=== PATIENT | female | born 1945 | race Caucasian/White ===

== ENCOUNTER → 2016-05-11 | Outpatient (CLI) | payer MEDICARE ==
[~2016-05-11] MED LIST: ASCO500T20 PO; ASP81TEC PO; ATN50T PO; ATR20T; C250T PO; CHOL10002 PO; CYAN10007 PO; E400C PO; ERGO400C PO; ESCI20TA2 PO; FENO134C PO; HCT25T PO; HCTZ12.5T PO; LINA5TAB PO; LISI40TA PO; LOVA40TA2 PO; LSNP20T PO; MELO-198 PO; MULT1TAB63 PO; OXYC-12 PO; SUPER B PLUS PO
--- OUTSIDE RECORDS SUMMARY | 2016-05-11 13:12 | XMS REPORT | Continuity of Care Document ---
Author Author [facility] Organization [facility] Address Unknown Phone Unavailable Care Team Providers Care Rn Clinical Trials Name Role Phone Susan May III PCP [phone] Source Comments Some departments are not documenting in the electronic medical record. If you do not see the information that you expected, contact Release of Information in the Health Information Management department at [phone] for further assistance in locating additional records.[facility] Active Allergies and Adverse Reactions No Known Allergies Current Medications Prescription Sig. Disp. Refills Start End Date Status Date sitaGLIPtin (JANUVIA) 100 Take 100 mg by mouth Active mg tab tablet daily. amLODIPine (NORVASC) 10 Take 10 mg by mouth Active mg tablet daily. escitalopram oxalate Take 20 mg by mouth at Active (LEXAPRO) 20 mg tablet bedtime daily. meloxicam (MOBIC) 15 mg Take 15 mg by mouth Active tablet daily. lisinopril (PRINIVIL; Take 20 mg by mouth Active ZESTRIL) 20 mg tablet daily. lovastatin(+) (MEVACOR) Take 40 mg by mouth at Active 40 mg tablet bedtime daily. aspirin EC 81 mg tablet Take 81 mg by mouth Active daily. metoprolol (LOPRESSOR) 25 Take 25 mg by mouth twice Active mg tablet daily. Active Problems Problem Noted Date Vocal cord paralysis 11/21/2014 Dysphonia 10/23/2014 Vocal cord paralysis, unilateral complete - left 10/23/2014 Dysphagia, pharyngoesophageal phase - to liquids 10/23/2014 Most Recent Encounters Date Type Specialty Providers Description 03/31/2016 Clinical Otolaryngology May, Radha, Dysphonia ( Primary Dx); Support ABRAN HARP-COMPLIANCE SPECIALIST Vocal cord paralysis 03/31/2016 Office Visit Otolaryngology Baldev Garcia MD Dysphonia ( Primary Dx); Vocal cord paralysis, unilateral complete - left; Dysphagia, pharyngoesophageal phase - to liquids Social History Tobacco Use Types Packs/Day Years Used Date Current Every Day Smoker 1 40 Smokeless Tobacco: Never Used Tobacco Cessation: Ready to Quit: No; Counseling Given: Yes Comments: Alcohol Use Drinks/Week oz/Week Comments Yes 0 Standard 0.0 1 drink/year. drinks or equivalent Last Filed Vital Signs Vital Sign Reading Time Taken Blood Pressure 127/73 03/31/2016 10:57 AM BOMB SQUAD COMMANDER Pulse 67 03/31/2016 10:57 AM B[employer] SQU[employer] COMMANDER Temperature 36.6 C (97.8 F) 11/22/2014 6:36 AM CDT Respiratory Rate - - Height 1.626 m (5' 4") 03/31/2016 10:57 AM BOMB SQU[employer] COMMANDER Weight 73.12 kg (161 lb 3.2 oz) 03/31/2016 10:57 AM BOM[employer] SQU[employer] COMMANDER Body Mass Index 27.66 03/31/2016 10:57 AM BOM[employer] SQU[employer] COMMANDER Oxygen Saturation 94% 11/22/2014 10:04 AM CDT Plan of Care Date Type Specialty Providers Description 04/06/2017 Appointment Otolaryngology Baldev Garcia MD [address] [facility] [address] [place] [address] [phone] (Fax) Health Maintenance Due Date Last Done Comments Hepatitis C Screening 1945 Physical (Comprehensive) 06/16/1954 Exam Pertussis Vaccine 06/16/1958 Tetanus Vaccine 06/16/1964 Breast Cancer Screening 1987 Colorectal Cancer 06/16/1997 Screening Shingles Vaccine 2007 Osteoporosis Screening 06/16/2012 Prevnar/Pneumovax (#1) 06/16/2012 Influenza Vaccine 12/18/2015 Procedures from Last 3 Months Procedure Name Priority Date/Time Associated Diagnosis Comments ACOUSTIC ANALYSIS Routine 03/31/2016 Vocal cord paralysis, 12:00 AM BOMB SQUAD COMMANDER unilateral complete - left Results from Last 3 Months ACOUSTIC ANALYSIS (03/31/2016)
== END ==
LOC: RAD 13:08
PROVIDERS: ATTEND Internal Medicine Cardiovascular Disease
DX: I73.9 Peripheral vascular disease, unspecified (principal); R06.09 Other forms of dyspnea; Z72.0 Tobacco use; Z95.2 Presence of prosthetic heart valve; I25.10 Atherosclerotic heart disease of native coronary artery without angina pectoris; E11.9 Type 2 diabetes mellitus without complications; R49.8 Other voice and resonance disorders
CPT/HCPCS: 93923

== ENCOUNTER → 2016-05-18 | Outpatient (CLI) | payer MEDICARE ==
[~2016-05-18] VITALS: Ht 162.6 cm; Wt 72.6 kg
[~2016-05-18] MED LIST changes: +REGADENOSON 0.4 MG/5 ML SYR (LEXISCAN) IV ONE
--- OUTSIDE RECORDS SUMMARY | 2016-05-18 10:50 | XMS REPORT | Continuity of Care Document ---
Author Author [facility] Organization [facility] Address Unknown Phone Unavailable Care Team Providers Care Dinkey Engineer Name Role Phone Susan May III PCP [phone] Source Comments Some departments are not documenting in the electronic medical record. If you do not see the information that you expected, contact Release of Information in the Health Information Management department at [phone] for further assistance in locating additional records.[facility] Active Allergies and Adverse Reactions No Known [...] Radha, Dysphonia ( Primary Dx); Support ABRAN HARP-PASSENGER CONDUCTOR Vocal cord paralysis 03/31/2016 Office Visit Otolaryngology [...] Taken Blood Pressure 127/73 03/31/2016 10:57 AM TAX SERVICES MANAGER Pulse 67 03/31/2016 10:57 AM TAX SERVICES MANAGER Temperature 36.6 C (97.8 F) 11/22/2014 6:36 AM CDT Respiratory Rate - - Height 1.626 m (5' 4") 03/31/2016 10:57 AM TAX SERVICES MANAGER Weight 73.12 kg (161 lb 3.2 oz) 03/31/2016 10:57 AM TAX SERVICES MANAGER Body Mass Index 27.66 03/31/2016 10:57 AM TAX SERVICES MANAGER Oxygen Saturation 94% 11/22/2014 10:04 AM CDT Plan of Care Date Type Specialty Providers Description 04/06/2017 Appointment Otolaryngology Baldev Garcia MD [address] [facility] [address] [place] [address] [phone] (Fax) Health Maintenance Due Date Last Done Comments Hepatitis C Screening 1945 Physical (Comprehensive) 06/16/1954 Exam Pertussis Vaccine 06/16/1958 Tetanus Vaccine 06/16/1964 Breast Cancer Screening 1987 Colorectal Cancer 06/16/1997 Screening Shingles Vaccine 2007 Osteoporosis Screening 06/16/2012 Prevnar/Pneumovax (#1) 06/16/2012 Influenza Vaccine 12/18/2015 Procedures from Last 3 Months Procedure Name Priority Date/Time Associated Diagnosis Comments ACOUSTIC ANALYSIS Routine 03/31/2016 Vocal cord paralysis, 12:00 AM TAX SERVICES MANAGER unilateral complete - left Results from Last 3 Months ACOUSTIC ANALYSIS (03/31/2016)
[2016-05-18] MEDS: CATHETER FLUSH 10 ML SYR IV PRN ×2 (11:59→13:13)
[2016-05-18 13:07] VITALS: BP 151/81
--- NOTE | 2016-05-19 09:24 | STRESS TEST ---
PROCEDURE PHYSICIAN: BERTRAND GRAHAM DATE OF PROCEDURE: 05/18/2016 RESTING AND POST REGADENOSON TECHNETIUM 99M TETROFOSMIN SPECT CT IMAGING: ORDERING PHYSICIAN: Dr. Graham PRIMARY PHYSICIAN: Dr. May CLINICAL DIAGNOSES: 1. Coronary artery disease. 2. Shortness of breath. Baseline images were carried out after injection of 10.16 mCi technetium 99m tetrofosmin. This was followed by 0.4 mg of regadenoson and 32 mCi of technetium 99m tetrofosmin for stress imaging. The electrocardiogram showed sinus rhythm at baseline and there was right bundle branch block. The electrocardiogram did not change with the regadenoson infusion. The patient did not report symptoms. Review of images at rest and following stress, does not indicate any distinct perfusion defects consistent with significant myocardial ischemia or infarction. Gated images show normal global left ventricular systolic function with no regional wall motion. Left ventricular ejection fraction is calculated to be 79%. Left ventricular end-diastolic volume is 41 mL. TID is absent (0.99). CONCLUSION: 1. No evidence of significant myocardial ischemia or infarction on this study. 2. Normal regional wall motion. 3. Normal global left ventricular systolic function with a calculated ejection fraction of 79%. Job ID: [id number] Dictated Date: 05/18/2016 15:32:02 Educational Recruiter Date: 05/19/2016 09:19:26 / giancarlo
--- NOTE | 2016-05-21 08:41 | ECHOCARDIOGRAPHY REPORT ---
PROCEDURE PHYSICIAN: BERTRAND GRAHAM DATE OF PROCEDURE: 05/18/2016 TWO DIMENSIONAL ECHOCARDIOGRAM REPORT PRIMARY PHYSICIAN: Dr. May OTHER PHYSICIAN: REFERRING PHYSICIAN: ORDERING PHYSICIAN: Dr. Graham INDICATION FOR THE PROCEDURE: 1. Coronary artery disease. 2. Shortness of breath. MEASUREMENTS DERIVED VALUES LV DIAMETER (LAX) NORMALS NORMALS Diastolic 5 (3.6-5.2) Eject. Fract. (60%+/-6%) Systolic (2.3-3.9) Diastolic Vol. % Shortening (0.22-0.42) Systolic Vol. Aortic Root 3.2 IVS THICKNESS Diastolic 1.1 (0.6-1.1) LVPW THICKNESS Diastolic 1 (0.6-1.1) LA DIAMETER Systolic 4.6 (2.1-3.7) DESCRIPTION: This is a technically difficult study. The study is unsuitable for wall motion analysis. Aortic, mitral and tricuspid valve leaflets show good leaflet excursion. Left ventricular systolic function appears to be within normal limits. Left ventricular ejection fraction is estimated to be 55 to 60%. There is mild enlargement of the atrium. In the aortic position, the patient is known to have a bioprosthesis. Leaflet structure is not well visualized. Peak pressure gradient across the aortic valve is approximately 41 mmHg with a mean gradient of approximately 13 mmHg and the aortic valve area is calculated to be approximately 1.8 cm sq. Mitral inflow is consistent with grade 1 diastolic dysfunction of the left ventricle. There does not appear to be evidence of significant mitral stenosis. There is no evidence of intracardiac shunt on this transthoracic echocardiographic study. Inferior vena cava does not appear significantly dilated and does exhibit inspiratory collapse. CONCLUSIONS: 1. Technically difficult study. 2. Well preserved global left ventricular systolic function with an ejection fraction of approximately 55%. 3. Aortic valve bioprosthesis that appears to be functioning adequately. 4. Mild diastolic dysfunction of the left ventricle. 5. Trivial to mild mitral, tricuspid and aortic regurgitation. 6. Pulmonary artery systolic pressure is estimated to be approximately 30 mmHg. Job ID: [id number] Dictated Date: 05/20/2016 09:56:23 Artificial Breeding Technician Date: 05/21/2016 08:20:10 / giancarlo
== END ==
LOC: CARD 10:48
PROVIDERS: ATTEND Internal Medicine Cardiovascular Disease
DX: I73.9 Peripheral vascular disease, unspecified (principal); Z72.0 Tobacco use; Z95.2 Presence of prosthetic heart valve; I25.10 Atherosclerotic heart disease of native coronary artery without angina pectoris; E11.9 Type 2 diabetes mellitus without complications; R49.8 Other voice and resonance disorders; R06.09 Other forms of dyspnea
CPT/HCPCS: 78452; 93017; 93306

== ENCOUNTER → 2018-09-19 | Outpatient (CLI) | payer MEDICARE, OTHER ==
[~2018-09-19] VITALS: Ht 162.6 cm; Wt 69.9 kg
[~2018-09-19] MED LIST changes: +CATHETER FLUSH 10 ML SYR IV PRN
--- NOTE | 2018-09-20 14:00 | STRESS TEST ---
DATE OF SERVICE: 09/19/2018 RESTING AND POST REGADENOSON TECHNETIUM-99M TETROFOSMIN SPECT CT IMAGING ORDERING PHYSICIAN: Dr. Graham. PRIMARY PHYSICIAN: Dr. May. CLINICAL DIAGNOSIS: Coronary artery disease. Baseline images were carried out after injection of 10.76 mCi of technetium-99m Tetrofosmin. This was followed by 0.4 mg regadenoson and 30.7 mCi of technetium-99m Tetrofosmin for stress imaging. The electrocardiogram showed sinus rhythm with right bundle branch block at baseline. The electrocardiogram did not change significantly with the regadenoson infusion. Review of images at rest and following stress does not indicate any significant perfusion defects consistent with significant myocardial ischemia or infarction. Gated images show normal global left ventricular systolic function, normal regional wall motion. Left ventricular ejection fraction is calculated to be 78%. Left ventricular end diastolic volume is 57 mL. TID is absent (0.93). CONCLUSIONS: 1. No evidence of any significant myocardial ischemia or infarction. 2. Normal regional wall motion. 3. Normal global left ventricular systolic function with a calculated ejection fraction of 78%. Job ID: [id number] DocumentID: [id number] Dictated Date: 09/20/2018 12:51:50 Obstetrics Tech Date: 09/20/2018 13:59:22 Dictated By: BERTRAND GRAHAM MD, MA, FACP, FACC,
== END ==
LOC: CARD 10:45
PROVIDERS: ATTEND Internal Medicine Cardiovascular Disease
DX: I25.10 Atherosclerotic heart disease of native coronary artery without angina pectoris (principal); R06.09 Other forms of dyspnea; E11.9 Type 2 diabetes mellitus without complications; E78.5 Hyperlipidemia, unspecified; I65.23 Occlusion and stenosis of bilateral carotid arteries; Z95.3 Presence of xenogenic heart valve
CPT/HCPCS: 78452; 93017

== ENCOUNTER → 2021-01-13 | Outpatient (CLI) | payer MEDICARE ==
[~2021-01-13] MED LIST changes: -CATHETER FLUSH 10 ML SYR IV PRN; -REGADENOSON 0.4 MG/5 ML SYR (LEXISCAN) IV ONE
== END ==
LOC: CARD 13:45
PROVIDERS: ATTEND Nurse Practitioner Family
DX: I08.0 Rheumatic disorders of both mitral and aortic valves (principal); Z95.4 Presence of other heart-valve replacement
CPT/HCPCS: 93306

== ENCOUNTER → 2022-02-01 | Outpatient (CLI) | payer MEDICARE | LOC: CARD 13:00 | PROVIDERS: ATTEND Internal Medicine Cardiovascular Disease | DX: I51.7 Cardiomegaly (principal); I35.1 Nonrheumatic aortic (valve) insufficiency; Z95.4 Presence of other heart-valve replacement | CPT/HCPCS: 93306 ==

== ENCOUNTER → 2022-07-19 | Outpatient (CLI) | payer MEDICARE | LOC: CARD 11:32 | PROVIDERS: ATTEND Internal Medicine Cardiovascular Disease | DX: I08.2 Rheumatic disorders of both aortic and tricuspid valves (principal) | CPT/HCPCS: 93306 ==

== ENCOUNTER 2022-09-14 07:08 | Day surgery (SDC) | payer MEDICARE ==
[~2022-09-14] VITALS: Ht 165.1 cm; Wt 67.1 kg
[2022-09-14] VITALS (9 sets, daily range): BP systolic 138–150; BP diastolic 50–65
[2022-09-14] MEDS ORDERED: HEParin (CATH LAB) 2,000 ML IV ONE (07:13)
[2022-09-14] MEDS ORDERED: NS IV 1000 ML 1,000 ML ONE (07:13)
[2022-09-14] MEDS ORDERED: LIDOCAINE 1% INJ 20 ML VIAL ONE ×2 (07:13→08:59)
[2022-09-14] MEDS ORDERED: NS IV 1000 ML 1,000 ML IV SCH ×2 (07:15→10:15)
[2022-09-14 07:41] LABS: HEMATOCRIT 40 % (35-52); HEMOGLOBIN 13.8 g/dL (11.5-16.0); MEAN CORPUSCULAR HEMOGLOBIN 31 pg (25-34); MEAN CORPUSCULAR HGB CONC 34 g/dL (32-36); MEAN CORPUSCULAR VOLUME 91 fL (80-99); MEAN PLATELET VOLUME 11.7 fL (9.0-12.2); PLATELET COUNT 143 10^3/uL (130-400); WHITE BLOOD COUNT 7.9 10^3/uL (4.3-11.0)
[2022-09-14] MEDS ORDERED: AMLO-251 PO (07:48)
[2022-09-14] MEDS ORDERED: RT-ALBUINH INH (07:48)
[2022-09-14] MEDS ORDERED: SITA100T12 PO (07:48)
[2022-09-14] MEDS ORDERED: MELO15TA39 PO (07:48)
[2022-09-14] MEDS ORDERED: MTP100TCR PO (07:48)
[2022-09-14] MEDS ORDERED: DOXA2TAB2 PO (07:48)
[2022-09-14 07:52] LABS: PROTHROMBIN TIME PATIENT 13.2 SEC (12.2-14.7)
[2022-09-14] MEDS ORDERED: fentaNYL INJ 100 MCG/2 ML AMP ONE (07:52)
[2022-09-14] MEDS ORDERED: MIDAZOLAM 5 MG/5 ML (VERSED) VIAL ONE (07:53)
[2022-09-14 08:00] LABS: ALBUMIN 3.8 GM/DL (3.2-4.5); BILIRUBIN,TOTAL 0.5 MG/DL (0.1-1.0); CALCIUM 9.3 MG/DL (8.5-10.1); CREATININE SERUM 1.13 MG/DL (0.60-1.30); POTASSIUM 4.2 MMOL/L (3.6-5.0); TOTAL PROTEIN 6.7 GM/DL (6.4-8.2)
--- NOTE | 2022-09-14 09:49 | Cardiac Procedure Note-CS/ASA ---
Pre-Procedure Note Pre-Op Procedure Note Date of Available H&P: September 01, 2022 Date H&P Reviewed: September 14, 2022 Time H&P Reviewed: 08:45 History & Physical: H&P Reviewed, No changes noted Moderate Sedation PreProcedure ASA Score 3 Airway Lungs Heart ASA score ASA 1: a normal healthy patient ASA 2: a patient with a mild systemic disease (mid diabetes, controlled hypertension, obesity ASA 3: a patient with a severe systemic disease that limits activity (angina, COPD, prior Myocardial infarction) ASA 4: a patient with an incapacitating disease that is a constant threat to life (CHF, renal failure) ASA 5: a moribund patient not expected to survive 24 hrs. (ruptured aneurysm) ASA 6: a declared brain- patient whose organs are being harvested. For emergent operations, add the letter E after the classification Mallampati Classification Grade 2 Sedation Plan Analgesia, Amnesia, Plan communicated to team members The patient is an appropriate candidate to undergo the planned procedure, sedation, and anesthesia. The patient immediately re-assessed prior to indication. BERTRAND HOPE MD FACP FAC CCDS September 14, 2022 09:49
--- NOTE | 2022-09-14 10:03 | Cardiac Cath Report ---
CARDIAC CATHETERIZATION DATE OF PROCEDURE: 09-14-22 INDICATION: Aortic regurgitation HISTORY: The patient is a 77 year old female w/o h/o Trifecta AoV replacement in 2012 and ascending aortic aneurysm and AoV regurg repair in 2013 who currently has mod to severe aortic regurgitation on echo of 2022 PROCEDURES PERFORMED: 1. RHC; 2. Cor angio; 3. Aortic root angio PROCEDURE DESCRIPTION: After informed consent and in the fasting state; inht heart cath was performed through the R femoral vein using a 7F [place]-Geri; left heart catheterization was performed through the R remoral artery utilizing a 5 Azeri system by percutaneous approach. 5F JL5 for L cors, 5F JR 4 for R cor, 5F pigtail for aortic root angio. Manual pressure for hemostasis after arterial and venous sheath removal. HEMODYNAMICS: PA 40/19/26 mmHg PWP mean 17 mmHg RV 44/10 mmHg RA mean 12 mmHg PVR 2.73 Wood Thermodilution CO 3.3 l/min Thermodilution CI 1.9 l/min/sq m Ao 121/41/63 No oxygen step up on oxygen sat measurements in the various R heart chambers CORONARY ANGIOGRAPHY: Left main coronary artery: Ok Left anterior descending coronary artery: mild to mod plaque in D1 Left circumflex coronary artery: Ok Right coronary artery: Dominant, mild diffuse plaque AORTIC ROOT ANGIOGRAM Done in [place] and FRENCH projections Moderate dilatation of ascending aorta Bioprosthetic aortic valve Moderately severe aortic regurgitation (3+) LVEF 55-60% IMPRESSION: 1. Moderately severe aortic regurgitation 2. Mild CAD 3. LVEF 55-60% 4. Mild pulmonary hypertension probably due to some degree of diastolic left heart failure (PWP 17 mmHg) PLAN Continue medical therapy and close outpatient f/u Surgical consult BERTRAND HOPE MD FACP FACC CCDS September 14, 2022 10:03
[2022-09-14] MEDS ORDERED: PATIENT MAY USE OWN MEDS, ALL PO SCH (10:15)
[2022-09-14] MEDS ORDERED: SPIR25TA5 PO (10:17)
[2022-09-14] MEDS ORDERED: FURO20TA4 PO (10:17)
--- NOTE | 2022-09-14 10:18 | Discharge Inst-Cardiology ---
Discharge Inst-Cardiac Discharge Medications New Medications: Furosemide (Furosemide) 20 Mg Tablet 20 MG PO DAILY, #30 TAB 5 Refills Spironolactone (Spironolactone) 25 Mg Tablet 25 MG PO DAILY, #30 TAB 5 Refills Continued Medications: Albuterol Sulfate (Ventolin Hfa) 1 Puff Puff 2 PUFF INH Q4H, EA 1 PUFF = 90 MCG Amlodipine Besylate (Amlodipine Besylate) 10 Mg Tablet 10 MG PO DAILY, TAB Aspirin (Aspirin Ec 81 Mg) 81 Mg Tabec 81 MG PO DAILY Doxazosin Mesylate (Doxazosin Mesylate) 2 Mg Tablet 2 MG PO HS, TAB Lisinopril (Zestril) 40 Mg Tablet 40 EACH PO DAILY Lovastatin (Lovastatin 40 Mg) 40 Mg Tablet 40 MG PO DAILY WITH SUPPER Meloxicam (Meloxicam) 15 Mg Tablet 15 MG PO DAILY, TAB Metoprolol Succinate (Metoprolol Succinate) 100 Mg Tab.er.24h 100 MG PO DAILY, TAB Sitagliptin Phosphate (Januvia) 100 Mg Tablet 100 MG PO DAILY, TAB BERTRAND HOPE MD FACP FACC CCDS September 14, 2022 10:18
--- NOTE | 2022-09-14 10:19 | Discharge Inst-Post CATH ---
Discharge Inst-CATH/EP Post Cardiac Cath/EP D/C Inst Follow Up/Plan F/u with Dr Graham in one month ACTIVITY * Go Home directly and rest. * Limit activity of the leg (or wrist if it was used) for 7 days including aerobics, swimming, jogging, bicycling, etc. * Restrict stair-climbing for 7 days if possible, if not, climb up with your non-cath leg, then bring together on the same step. * Avoid lifting, pushing, pulling or excessive movement of the affected e xtremity for 7 days. * Customary sexual activity may be resumed after 2 days-use caution not to use a position that strains or causes pain to the affected extremity. * No driving for 24 hours. * NO SMOKING. * Avoid straining for bowel movements for 7 days. * Gentle walking on level ground is allowed. * Returning to work will depend on the type of procedure and the results. Your doctor will discuss this with you. CALL YOUR DOCTOR FOR ANY OF THE FOLLOWING: *If bleeding from the puncture site occurs- Apply gentle pressure to site with clean cloth and call your doctor or EMS. * If a knot or lump forms under the skin, increases in size, or causes pain. * If bruising appears to be worsening or moving further down your leg instead of disappearing. * Temperature above 101 F. CARE OF YOUR GROIN INCISION; * Bruising or purple discoloration of the skin near the puncture site is common. * You may shower only, no bathtub bathing for 5 days. Be careful to avoid slipping as your leg may feel stiff. * If a closure device was used on your femoral artery, please see the attached guide regarding care of the device and your leg. * Leave dressing on FOR 24 hours. CARE OF YOUR WRIST INCISION; * Bruising or purple discoloration of the skin near the puncture site is common. * You may shower. * DO NOT submerge wrist. * Leave dressing on FOR 24 hours. BERTRAND GRAHAM MD FACP FAC CCDS September 14, 2022 10:19
== END 2022-09-14 13:20 | disposition home or self-care (01) ==
LOC: CATH 07:08 → SDC 10:28 → CATH 13:20
PROVIDERS: ATTEND Internal Medicine Cardiovascular Disease
DX: I08.2 Rheumatic disorders of both aortic and tricuspid valves (principal); I25.10 Atherosclerotic heart disease of native coronary artery without angina pectoris; I27.20 Pulmonary hypertension, unspecified; F17.210 Nicotine dependence, cigarettes, uncomplicated; I71.40 Abdominal aortic aneurysm, without rupture, unspecified; J38.01 Paralysis of vocal cords and larynx, unilateral; I10 Essential (primary) hypertension; E11.9 Type 2 diabetes mellitus without complications; E78.2 Mixed hyperlipidemia; I65.23 Occlusion and stenosis of bilateral carotid arteries; J44.9 Chronic obstructive pulmonary disease, unspecified; G47.33 Obstructive sleep apnea (adult) (pediatric); Z95.4 Presence of other heart-valve replacement; Z79.899 Other long term (current) drug therapy; Z98.62 Peripheral vascular angioplasty status; Z79.84 Long term (current) use of oral hypoglycemic drugs; Z96.652 Presence of left artificial knee joint
CPT/HCPCS: 80053; 80061; 85027; 85610; 85730; 87081; 93460; 93567; C1769; C1894 ×2; 36415; 93005